=== PATIENT | female | born 1970 | race Caucasian/White ===

== ENCOUNTER 2020-01-10 13:20 | Emergency (ER) | payer SELFPAY ==
--- NOTE | 2020-01-10 14:06 | EDM.PDOC ---
ED HPI GENERAL MEDICAL PROBLEM - General Chief Complaint: Laceration Stated Complaint: FALL/LEFT CHEEK LACERATION Time Seen by Provider: 01/10/20 13:35 Source of Information: Reports: Patient History Limitations: Reports: No Limitations - History of Present Illness INITIAL COMMENTS - FREE TEXT/NARRATIVE: Patient is a 49-year-old female who presents with complaints of a laceration to her left upper cheek. She states that she was carrying a plant when she tripped over her walking boot and hit the side of her face on the concrete. She was wearing glasses which cut her cheek. States that her last tetanus vaccination was in 2012. She had no loss of consciousness and denies headache or dizziness at this time. Treatments FLOOR LAYER TILE: Reports: Other (see below) Other Treatments FLOOR LAYER TILE: none Left Cheek Pain Score (Numeric/FACES): 5 - Related Data Allergies Allergy/AdvReac Type Severity Reaction Status Date / Time No Known Allergies Allergy Verified 07/17/18 14:33 Home Meds: Home Meds atorvaSTATin [Lipitor] 10 mg PO BEDTIME 06/21/15 [History] traZODone 50 mg PO BEDTIME PRN 07/14/16 [History] Calcium Carbonate/Vitamin D3 [Calcium 500 + Vit D 400] 1 tab PO DAILY 07/17/18 [ History] Insulin Lispro [HumaLOG] 0 units SQ ASDIRECTED 07/17/18 [History] Losartan [Cozaar] 25 mg PO DAILY 07/17/18 [History] Sertraline [Zoloft] 100 mg PO DAILY 07/17/18 [History] Past Medical History HEENT History: Reports: Hard of Hearing, Impaired Vision Other HEENT History: wears glasses - diabetic retinopathy, Lt retinal edema Cardiovascular History: Reports: High Cholesterol, Hypertension Respiratory History: Reports: None Gastrointestinal History: Reports: None Genitourinary History: Reports: None [employer]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 Musculoskeletal History: Reports: Fracture Other Musculoskeletal History: bilateral carpal tunnel syndrome Neurological History: Reports: None Psychiatric History: Reports: None Endocrine/Metabolic History: Reports: Diabetes, Type I - Past Surgical History HEENT Surgical History: Reports: Adenoidectomy, Tonsillectomy GI Surgical History: Reports: Colonoscopy Female Surgical History: Reports: Breast Reduction, Section, Hysterectomy, Tubal Ligation Musculoskeletal Surgical History: Reports: Carpal Tunnel, Shoulder Surgery Social & Family History - Tobacco Use Smoking Status *Q: Never Smoker - Caffeine Use Caffeine Use: Reports: Soda - Recreational Drug Use Recreational Drug Use: No - Living Situation & Occupation Living situation: Reports: , with Spouse, with Family (2 sons) 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 ED EXAM, SKIN/RASH Exam: See Below Exam Limited By: No Limitations General Appearance: Alert, WD/WN, No Apparent Distress Respiratory/Chest: No Respiratory Distress, Lungs Clear, Normal Breath Sounds, No Accessory Muscle Use, Chest Non-Tender Cardiovascular: Normal Peripheral Pulses, Regular Rate, Rhythm, No Edema, No Gallop, No JVD, No Murmur, No Rub Neurological: Alert, Oriented, CN II-XII Intact, Normal Cognition, Normal Gait, Normal Reflexes, No Motor/Sensory Deficits Psychiatric: Normal Affect, Normal Mood Skin: Warm, Dry, Intact, Other (1.5 cm linear laceration to the left zygomatic arch. 0.5 cm T-shaped laceration approximate 1 cm distal to this laceration.) ED SKIN PROCEDURES - Laceration/Wound Repair Left Cheek Appearance: Subcutaneous Distal NVT: Neuro & Vascular Intact Anesthetic Type: Local Local Anesthesia - Lidocaine (Xylocaine): 1% Plain Local Anesthetic Volume: 2cc Skin Prep: Providone-Iodine (Betadine), Saline, Sterile Drape Exploration/Debridement/Repair: Wound Explored, No Foreign Material Found Closed with: Sutures Lac/Wound length In cm: 2 (1.5 cm and 0.5 cm for a total of 2 cm) Suture Size: 6-0 # of Sutures: 6 (4 sutures in the 1.5 cm laceration. 2 sutures in the 0.5 cm laceration.) Suture Type: Nylon Sterile Dressing Applied: Nurse Tetanus Status Addressed: Yes Complications: No Course - Vital Signs Last Recorded V/S: Last Vital Signs Temp 99.3 F 01/10/20 13:44 Pulse 95 01/10/20 13:44 Resp 20 01/10/20 13:44 BP 145/90 H 01/10/20 13:44 Pulse Ox 96 01/10/20 13:44 - Orders/Labs/Meds Meds: Medications Discontinued Medications Generic Name Dose Route Start Last Admin Trade Name Freq PRN Reason Stop Dose Admin Lidocaine HCl 10 ml 01/10/20 14:16 01/10/20 14:27 Xylocaine 1% INJECT 01/10/20 14:17 10 ml ONETIME ONE Administration Departure - Departure Time of Disposition: 15:09 Disposition: Home, Self-Care 01 Condition: Good Clinical Impression: Facial laceration Qualifiers: Encounter type: initial encounter Qualified Code(s): S01.81XA - Laceration without foreign body of other part of head, initial encounter - Discharge Information *PRESCRIPTION DRUG MONITORING PROGRAM REVIEWED*: No *COPY OF PRESCRIPTION DRUG MONITORING REPORT IN PATIENT NIMA: No Instructions: Facial Laceration, [id number], Sutures, Deo, or Adhesive Wound Closure, [id number] Referrals: Emelia Campos RECYCLING COLLECTIONS DRIVER [Primary Care Provider] - Forms: ED Department Discharge Additional Instructions: You were seen in the emergency department today for a laceration to your left cheek. The wounds wer cleansed and closed with 6 sutures. These should stay intact for 3-5 days. After that time they may be removed in the clinic by a nurse. Keep the wound clean and dry. Wash with normal soap and water twice daily. Do not submerge the wound in water. Watch for signs of infection including increased redness, swelling, or purulent drainage. If these should occur, you should be seen either in the clinic or in the emergency department as these are signs of infection. Return to the ER as needed. Sepsis Event Note - Evaluation Sepsis Screening Result: No Definite Risk - Focused Exam Vital Signs: Vital Signs Temp Pulse Resp BP Pulse Ox 01/10/20 13:44 99.3 F 95 20 145/90 H 96 Date Exam was Performed: 01/10/20 Time Exam was Performed: 15:03
[2020-01-10] MEDS ORDERED: Lidocaine 1% 10 ML MDV INJECT ONE (14:16)
[2020-01-10 15:11] VITALS: BP 122/73; PULSE 98
== END 2020-01-10 15:23 | disposition home or self-care (01) ==
LOC: JD.ED 13:20
DX: S01.412A Laceration without foreign body of left cheek and temporomandibular area, initial encounter (principal); E78.00 Pure hypercholesterolemia, unspecified; I10 Essential (primary) hypertension; E10.319 Type 1 diabetes mellitus with unspecified diabetic retinopathy without macular edema; Z79.899 Other long term (current) drug therapy; W01.198A Fall on same level from slipping, tripping and stumbling with subsequent striking against other object, initial encounter
CPT/HCPCS: 12011; 99282; J2001

== ENCOUNTER 2021-06-22 06:54 | Day surgery (SDC) | payer BC ==
--- NOTE | 2021-06-19 11:25 | PCM.PREANE ---
Preanesthetic Assessment - Procedure Proposed Procedure: EGD and Colonoscopy - Anesthesia/Transfusion/Family Hx Anesthesia History: Prior Anesthesia Without Reaction Family History of Anesthesia Reaction: No Transfusion History: No Prior Transfusion(s) Intubation History: Unknown - Review of Systems General: No Symptoms Pulmonary: No Symptoms (History of snoring:) Cardiovascular: No Symptoms (Elevated cholesterol, HTN) Gastrointestinal: No Symptoms (GERD/heartburn-controlled), Abdominal Pain (constant LLQ pain: #5/10), Diarrhea (occasional), Hematochezia (History of;) Neurological: No Symptoms (vertigo) Other: Reports: Easy Bleeding (History of rectal bleeding, ), Diabetes (am blood sugar: history of insulin pump: 124 @ 0700), Depression, Anxiety - Physical Assessment NPO Status Date: 06/21/21 NPO Status Time: 20:00 Vital Signs: HR: 99 Sat: 98% Temp: 98.7 Resp: 18 B/P: 157/84 Height: 1.73 m Weight: 90 kg ASA Class: 3 Mental Status: Alert & Oriented x3 Airway Class: Mallampati = 2 Dentition: Reports: Normal Dentition, Caries Thyro-Mental Finger Breadths: 3 Mouth Opening Finger Breadths: 3 ROM/Head Extension: Full Lungs: Clear to Auscultation, Normal Respiratory Effort Cardiovascular: Regular Rate, Regular Rhythm, No Murmurs - Lab Values: All labs reviewed and noted and within acceptable ranges to proceed with scheduled procedure. - Imaging/EKG Impressions: EKG: SR rate=80, abnormal R wave progression. - Allergies Allergies/Adverse Reactions: Allergies Allergy/AdvReac Type Severity Reaction Status Date / Time No Known Allergies Allergy Verified 06/19/21 11:00 - Anesthesia Plan Pre-Op Medication Ordered: None - Acknowledgements Anesthesia Type Planned: MAC Pt an Appropriate Candidate for the Planned Anesthesia: Yes Alternatives and Risks of Anesthesia Discussed w Pt/Guardian: Yes Pt/Guardian Understands and Agrees with Anesthesia Plan: Yes PreAnesthesia Questionnaire HEENT History: Reports: Hard of Hearing, Impaired Vision Other HEENT History: wears glasses - diabetic retinopathy, Lt retinal edema Cardiovascular History: Reports: High Cholesterol, Hypertension Respiratory History: Reports: None Gastrointestinal History: Reports: GERD Genitourinary History: Reports: None 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: Hysterectomy 5 years ago 2009 Musculoskeletal History: Reports: Fracture Other Musculoskeletal History: bilateral carpal tunnel syndrome Neurological History: Reports: None Psychiatric History: Reports: None Endocrine/Metabolic History: Reports: Diabetes, Type I Hematologic History: Reports: None Immunologic History: Reports: None Oncologic (Cancer) History: Reports: None Dermatologic History: Reports: None - Past Surgical History HEENT Surgical History: Reports: Adenoidectomy, Tonsillectomy Cardiovascular Surgical History: Reports: None Respiratory Surgical History: Reports: None GI Surgical History: Reports: Colonoscopy Female Surgical History: Reports: Breast Reduction, Section, Hysterectomy, Tubal Ligation Male Surgical History: Reports: None Other Endocrine Surgeries/Procedures: patient on insulin pump ( novolog) Neurological Surgical History: Reports: None Musculoskeletal Surgical History: Reports: Carpal Tunnel, Shoulder Surgery, Other (See Below) Other Musculoskeletal Surgeries/Procedures:: RIGHT FOOT SURGERY Oncologic Surgical History: Reports: None Dermatological Surgical History: Reports: None - SUBSTANCE USE Tobacco Use Status *Q: Never Tobacco User Recreational Drug Use History: No - HOME MEDS Home Medications: Home Meds traZODone 50 mg PO BEDTIME PRN 07/14/16 [History] Calcium Carbonate/Vitamin D3 [Calcium 500 + Vit D 400] 1 tab PO DAILY 07/17/18 [History] Losartan [Cozaar] 25 mg PO DAILY 07/17/18 [History] Alendronate Sodium [Fosamax] 70 mg PO Q7D 06/19/21 [History] Cholecalciferol (Vitamin D3) [Vitamin D3] 2,000 unit PO DAILY 06/19/21 [History] Insulin Aspart (Niacinamide) [Fiasp 100 Unit/ml Vial] 1 dose SQ ASDIRECTED 06/19/21 [History] Sertraline HCl 75 mg PO DAILY 06/19/21 [History] atorvaSTATin [Lipitor] 40 mg PO DAILY 06/19/21 [History] - CURRENT (IN HOUSE) MEDS Current Meds: Current Medications Lactated Ringer's (Ringers, Lactated) 1,000 mls @ 125 mls/hr IV ASDIRECTED BETTIE Stop: 06/19/21 23:00 Lidocaine/Sodium Bicarbonate (Lidocaine 1%/Sod Bicarbonate In Ns 8.4% 1 Ml Syringe) 0.25 ml IDERM ONETIME PRN PRN Reason: Prior to IV Start Stop: 06/19/21 18:00 Sodium Chloride (Sodium Chloride 0.9% 10 Ml Syringe) 10 ml FLUSH ASDIRECTED PRN PRN Reason: Keep Vein Open Stop: 06/19/21 18:00
[~2021-06-22 06:54] MED LIST: Lactated Ringers 1,000 ML IV SCH; Lidocaine 1%/Sod Bicarbonate in NS 8.4% 1 ML Syringe IDERM PRN; Sodium Chloride 0.9% 10 ML Syringe FLUSH PRN
[2021-06-22] MEDS ORDERED: Lactated Ringers 1,000 ML ONE (07:08)
[2021-06-22] MEDS ORDERED: fentaNYL 100 MCG/2 ML SDV ONE (07:08)
[2021-06-22] MEDS ORDERED: Propofol 200 MG/20 ML SDV ONE ×2 (07:08→08:26)
[2021-06-22] MEDS ORDERED: Midazolam 1 MG/ML 2 ML SDV ONE (07:09)
--- NOTE | 2021-06-22 09:10 | PCM48HPAN ---
Post Anesthesia Note - EVALUATION WITHIN 48HRS OF ANESTHETIC Vital Signs in Normal Range: Yes Patient Participated in Evaluation: Yes Respiratory Function Stable: Yes Airway Patent: Yes Cardiovascular Function Stable: Yes Hydration Status Stable: Yes Pain Control Satisfactory: Yes Nausea and Vomiting Control Satisfactory: Yes Mental Status Recovered: Yes Vital Signs: Last Vital Signs Temp 99.1 06/22/21 0900 Pulse 78 06/22/21 0900 Resp 15 06/22/21 0900 BP 101/47 06/22/21 0900 Pulse Ox 96% 06/22/21 0900
--- NOTE | 2021-06-22 09:46 | PROC ---
DATE OF OPERATION: 06/22/2021 SURGEON: Hilda Ingram MD PREOPERATIVE DIAGNOSES: Hematochezia, left lower quadrant abdominal pain, history of gastroesophageal reflux disease, and positive Cologuard. POSTOPERATIVE DIAGNOSES: 1. Food bolus within the stomach. 2. Normal colon with grade 2 internal hemorrhoids. OPERATION PERFORMED: 1. Esophagogastroduodenoscopy. 2. Colonoscopy. ANESTHESIA: Monitored anesthesia care. ESTIMATED BLOOD LOSS: None. COMPLICATIONS: None. INDICATION AND CONSENT: Ms. Kendrick is a 51-year-old female with history of diabetes. The patient developed left lower quadrant pain about 6 months ago. This pain has been dull and [id number] in severity and the pain has not gone away. The patient also gets intermittent hematochezia typified by red blood when wiping. She does not have any anorectal pain. The patient also has a long history of reflux and heartburn that are controlled with omeprazole. Due to her symptoms, she underwent a Cologuard test which turned out to be positive. Her mother has Crohn disease, but the patient does not have a personal history of colon cancer or family history of colon cancer. Due to the findings and the symptoms, the patient was evaluated in clinic and a CT scan of the abdomen and pelvis was done for concern for diverticulitis and CT scan showed a 2 cm hemorrhagic cyst on the left side just above the iliac artery, but no other abnormalities were noted on the CT of the abdomen and pelvis. However, due to positive Cologuard, EGD and colonoscopy were recommended. The patient was deemed to be a candidate for these procedures. I saw the patient today and we discussed again the risks, benefits, and alternatives, and informed consent was obtained. DESCRIPTION OF PROCEDURE: The patient was taken to the procedure room, placed in left lateral decubitus position. Time-out was performed and monitored anesthesia care was induced. Bite block was placed to protect the teeth. Then, we began the procedure by putting a scope into the mouth and taking it all the way to the second portion of duodenum. The entire duodenum -second, first, and bulb- was normal. The antrum was normal. However, there was significant amount of food residual within the stomach. Part of this was suctioned out. Otherwise, the entire stomach appeared normal. On retroflexion, there was no hiatal hernia. GE junction was at 38 cm and appeared to be regular and the entirety of the esophagus also appeared to be normal. Air was suctioned out and this procedure was concluded with start of the colonoscopy. Digital rectal exam was significant for skin tags. The scope was inserted and taken all the way to the cecum. Appendiceal orifice and ileocecal valve were photographed. Prep was adequate. Cecum, ascending colon, hepatic flexure, transverse, splenic flexure, descending, sigmoid, and rectum all appeared normal. There were no polyps that were identified. Exam was able to be completed by utilizing irrigation for areas that had some amount of liquid stool. On the retroflexion in the rectum, we did note small hemorrhoids that were not irritated. These were grade 2 hemorrhoids. Air was suctioned out from the rectum and procedure was concluded. Therefore, in summary, the patient does not have any abnormalities that would explain left lower quadrant abdominal pain. The patient does not have any polyps. No diverticulum were seen. She does have grade 2 hemorrhoids that could intermittently bleed. The patient will be allowed to return home and follow up with her primary care doctor. MMODAL /[id number] MTDD
[2021-06-22 10:01] VITALS: BP 123/70; PULSE 85
== END 2021-06-22 09:30 | disposition home or self-care (01) ==
LOC: JD.SDS 06:54
PROVIDERS: ATTEND Surgery
DX: R19.5 Other fecal abnormalities (principal); K64.1 Second degree hemorrhoids; T18.2XXA Foreign body in stomach, initial encounter; E10.9 Type 1 diabetes mellitus without complications; K21.9 Gastro-esophageal reflux disease without esophagitis; M81.0 Age-related osteoporosis without current pathological fracture; E55.9 Vitamin D deficiency, unspecified; Z98.890 Other specified postprocedural states; Z79.899 Other long term (current) drug therapy; Z20.822 Contact with and (suspected) exposure to COVID-19
CPT/HCPCS: 43235; 45378; J2250; J2704; J3010; J7120; 00813

== ENCOUNTER 2024-07-05 07:05 | Day surgery (SDC) | payer BC ==
[~2024-07-05 07:05] MED LIST changes: -Lactated Ringers 1,000 ML IV SCH; -Lidocaine 1%/Sod Bicarbonate in NS 8.4% 1 ML Syringe IDERM PRN; +Ondansetron 4 MG/2 ML SDV ONE; +Propofol 200 MG/20 ML SDV ONE; -Sodium Chloride 0.9% 10 ML Syringe FLUSH PRN; +fentaNYL 100 MCG/2 ML SDV ONE
[2024-07-05] MEDS ORDERED: Bupivacaine 0.25% 10 ML SDV ONE (07:18)
[2024-07-05] MEDS ORDERED: ceFAZolin 2 GM Vial ONE (07:26)
[2024-07-05] MEDS ORDERED: diphenhydrAMINE 50 MG/ML SDV ONE (07:29)
[2024-07-05] MEDS: Lactated Ringers 1,000 ML IV SCH (07:35)
[2024-07-05] MEDS ORDERED: Propofol 200 MG/20 ML SDV ONE (07:46)
[2024-07-05] MEDS ORDERED: Sodium Chloride 0.9% 10 ML Syringe FLUSH PRN (08:01)
[2024-07-05] MEDS ORDERED: Lactated Ringers 1,000 ML IV SCH (08:15)
[2024-07-05] MEDS ORDERED: fentaNYL 100 MCG/2 ML SDV IVPUSH PRN (08:54)
[2024-07-05] MEDS ORDERED: Sodium Chloride 0.9% 10 ML Syringe FLUSH SCH (09:00)
[2024-07-05 11:35] VITALS: BP 116/68; PULSE 80
[2024-07-05] MEDS: Lidocaine 1% 20 ML MDV ONE (12:20)
== END 2024-07-05 10:55 | disposition home or self-care (01) ==
LOC: JD.SDS 07:05
PROVIDERS: ATTEND Orthopaedic Surgery
DX: M65.321 Trigger finger, right index finger (principal); G47.33 Obstructive sleep apnea (adult) (pediatric); E10.9 Type 1 diabetes mellitus without complications; K21.9 Gastro-esophageal reflux disease without esophagitis; I10 Essential (primary) hypertension; E78.00 Pure hypercholesterolemia, unspecified; F32.A Depression, unspecified; Z79.899 Other long term (current) drug therapy
CPT/HCPCS: 26055; J0690; J1200; J2405; J2704; J3010; J7120; 01810; J0665; J3490